=== PATIENT | female | born 1970 | race African-American/Black ===

== ENCOUNTER 2022-07-04 11:38 | Emergency (ER) | payer MEDICARE, MEDICAID, SELFPAY ==
[2022-07-04 11:39] VITALS: BP 145/75; PULSE 63; RESP 18; TEMP 36.4; O2SAT 97; BMI 58.6
--- NOTE | 2022-07-04 11:49 | EX.ED.DYSGE1 ---
HPI History of Present Illness Chief Complaint: General Illness Detail of Chief Complaint: Anxiety, upper respiratory symptoms diarrhea Informant: patient and family (Brother is present. He contributed to history.) Onset/Context/Timing Onset: - (Unknown. Brother was out of town for 10 days. He saw her last evening.) Context: - (Unknown) Timing: - (Unknown) Quality: HPI narrative Location: Respiratory, GI and possible psychological Current Severity: Per patient little . Maximum Severity: Uncertain Worsened by: Apparently nothing Relieved by: Nothing Associated Symptoms Associated Symptoms: What is documented in the HPI narrative Narrative Narrative: Patient is a 51-year-old woman present on no medications with history of anxiety disorder and cognitive impairment who arrived for evaluation due to mild rhinorrhea, cough, shortness of breath and reported numbness in her right upper extremity and pain in her right lower extremity. Brother states he was out of town for 10 days. Saw her for the first time last evening. He informed me that she normally goes to [facility] for her care. She did require antianxiolytic last visit. She is presently on no medication. Patient endorses little diarrhea . She denies nausea or vomiting. She states her headache is resolved. She denies change in vision, double vision or blurred vision. She denies ringing or ears decreased hearing. She has little rhinorrhea . She denies sore throat. Scant sputum production with cough. Presently she denies shortness of breath. Presently she denies chest discomfort. Presently she denies numbness in her right upper extremity. She did complain of pain rising from the wheelchair to a standing position. Patient began to cry. When asked why she was crying her brother informed me that she has a history of anxiety and has required medicine for her anxiety. He confirmed that she is presently on no medication. Prior similar symptoms: Yes Recent Illness/Hospitalization: No [facility] Medical History (Updated 07/04/22 @ 13:[address] Harman Brewer MD) Brain tumor Home Medications cetirizine 10 mg capsule (Zyrtec) 10 mg PO DAILY 07/04/22 [History Last Taken Unknown] hydrocodone-acetaminophen 5-325mg 5mg-325mg 1 tab PO Q6H PRN Pain 07/04/22 [History Last Taken Unknown] Allergy/AdvReac Type Severity Reaction Status Date / Time Penicillins Allergy Rash Verified 07/04/22 11:50 Social History (Updated 07/04/22 @ 11:[address] Harman Brewer MD) household members: none and other details: Apartment is in disarray. This apparently is not abnormal. Smoking Status: Never smoker alcohol intake: never substance use type: does not use ROS ROS ED Review of Systems ROS Unobtainable: due to mental status Constitutional Constitutional ED: Denies fever(s) Eyes Eyes: Denies blurry vision, change in vision or diplopia ENT ENT ED: Reports rhinorrhea Cardiovascular Cardiovascular: Denies chest pain, orthopnea, palpitations or paroxysmal nocturnal dyspnea Respiratory/Chest Respiratory/Chest: Reports cough, dyspnea and sputum; Denies dyspnea on exertion, orthopnea or paroxysmal nocturnal dyspnea Gastrointestinal Gastrointestinal: Reports diarrhea; Denies abdominal pain or vomiting Genitourinary Genitourinary ED: Denies dysuria, hematuria or urinary frequency Musculoskeletal Musculoskeletal: Denies arthralgias, back pain or myalgias Neurologic Neurologic: Reports headache(s) and weakness; Denies paresthesias Psychiatric Psychiatric: Reports anxiety Endocrine Endocrinology: Denies cold intolerance or heat intolerance EXAM Physical Exam Const Vital Signs: 07/04/22 11:39 07/04/22 11:53 Temperature 97.5 F L Temperature Source Temporal Pulse Rate 63 Respiratory Rate 18 Respiratory Effort Normal Non-Labored Respiratory Pattern Normal Blood Pressure 145/75 H Blood Pressure Mean 98 Pulse Ox 97 Oxygen Delivery Method Room Air Positive well nourished, well developed and obese; Negative for cachectic, contractures or unkempt Constitutional Narrative: Patient is tearful. She cannot explain why she is crying. General Appearance ED: well developed; Negative for unkempt, cachectic, contractures, cyanotic, diaphoretic or pallor Nutritional Appearance: obese; Negative for cachectic HEENT Reports moist mucous membranes HEENT Narrative: Ears normal. TMs normal. Nares patent. Uvula midline. No erythema or exudate. Eyes PERRL and EOMs intact bilaterally General Eye ED: Negative for pale conjunctiva or scleral icterus Neck no lymphadenopathy, supple and no JVD Chest Wall inspection of chest normal and palpation of chest normal Resp normal respiratory effort and clear to auscultation bilaterally Cardio regular rate, regular rhythm, S1 normal heart sound, S2 normal heart sound and no murmurs GI normal to inspection, nondistended, normoactive bowel sounds, non-tender, non-distended and no masses; Negative for hepatosplenomegaly Back/Spine no CVA tenderness Thoracic Spine / Upper Back: Negative for thoracic spinal tenderness Lumbar Spine / Lower Back: Negative for lumbar spinal tenderness Extremity normal to inspection General Extremety ED: Negative for edema or tenderness General Extremity: Negative for edema Neuro oriented x3, CN's II-XII intact bilaterally and no sensory deficits noted Neuro Narrative: There is no clonus. There is no Babinski sign. Sensorium / Orientation: alert Motor Exam: strength 5/5 throughout Psych Appearance: Negative for unkempt Mood & Affect: anxious and tearful Skin no rashes or lesions noted, no wounds and skin turgor normal General Skin Exam: Negative for jaundice or pallor MDM MDM MDM Narrative Medical decision making narrative: Call patient to assess due to cognitive impairment and anxiety. Since she does report respiratory symptoms we will obtain chest x-ray. Since she reports diarrhea and uncertain when her symptoms started will obtain basic metabolic panel to assess renal function, CO2 and rule out hypokalemia. Because patient has evidence of exophthalmos this will obtain TSH to evaluate for hypothyroidism. Patient was reassessed at 1314. Patient was informed her lab results and x-ray was unremarkable. She smiled. She asked if I knew the cause of her right lower extremity pain. I informed her I do not. I suspect that she has osteoarthritis. The tingling in her arm is unknown. She presently has no tingling or any other symptoms. Lab Data Attestation: I reviewed the patient's lab results. Lab results narrative: Patient has neutropenia. There are no old labs for comparison. Patient also has microcytic anemia. TSH was normal. Electrolyte panel is unremarkable. Labs: Laboratory Results - last 24 hr 07/04/22 07/04/22 12:10 12:10 WBC 3.5 L RBC 4.26 Hgb 8.5 L Hct 30.5 L MCV 71.6 L MCH 20.0 L MCHC 27.9 L RDW Std Deviation 58.9 H RDW Coeff of Priyanka 23.1 H Plt Count 343 MPV 10.0 Immature Gran % (Auto) 0.300 Neut % (Auto) 37.9 L Lymph % (Auto) 36.6 Pershing % (Auto) 24.0 H Eos % (Auto) 0.6 Baso % (Auto) 0.6 Absolute Neuts (auto) 1.3 L Absolute Lymphs (auto) 1.28 Nucleated RBC % 0 Anisocytosis 1+ Sodium 137 Potassium 4.2 Chloride 105 Carbon Dioxide 28.0 Anion Gap 4 L BUN 7 Creatinine 0.87 Estim Creat Clear Calc 53.72 Est GFR (MDRD) Af Amer 88 Est GFR (MDRD) Non-Af 73 BUN/Creatinine Ratio 8.1 L Glucose 94 Calcium 9.4 TSH 1.16 Radiography Chest X-Ray - ED: 2 View and Read by ED Physician (2 view chest x-ray reveals borderline cardiomegaly. Silhouette is unremarkable. Perihilar regions unremarkable. Lung parenchyma is normal. There is no effusion noted. Osseous structures are unremarkable. This was dependently reviewed and interpreted by me at 1258) Diagnostic Testing: Clinical Impression(s) from Imaging Studies Chest X-Ray 07/04/22 12:51 IMPRESSION: Cardiomegaly. Electronically Signed: Bry Velarde MD at 13:08 EDT , Discharge Plan Triage Chief Complaint: General Illness ED Provider: Harman Brewer Dx/Rx/DC Orders Clinical Impression: Anxiety reaction, Paresthesia of right upper limb, Acute pain of right lower extremity, Upper respiratory infection with cough and congestion, Cognitive impairment Instructions: ED Anxiety Reaction, ED Osteoarthritis, ED URI, Viral, No Abx (Adult), ED Paraesthesias Prescriptions: No Action hydrocodone-acetaminophen [[place]] 5-325 mg Tablet 1 tab PO Q6H PRN (Reason: Pain) Zyrtec 10 mg Capsule 10 mg PO DAILY Primary Care Provider: Kitty Edwards NP Referrals: Kitty Edwards RIDES SUPERVISOR, RIDES SUPERVISOR-C [Primary Care Provider] - 3-5 Days if not improving Disposition Disposition: Home, Self Care
[2022-07-04 12:21] LABS: Absolute Lymphocyte Count 1.28 X10^3/uL (0.83-4.51); Absolute Neutrophil Count 1.3 X10^3/uL (2.0-7.7); Basophil# 0.02 X10^3/uL; Basophil% 0.6 % (0-1); Eosinophil# 0.02 X10^3/uL; Eosinophils% 0.6 % (0-5); Hematocrit 30.5 % (37-47); Hemoglobin 8.5 g/dL (12.0-15.0); Lymphocyte # 1.28 X10^3/ul (0.83-4.51); Lymphocyte % 36.6 % (19-41); Mean Corp Hgb Conc 27.9 g/dL (32-36); Mean Corpuscular Volume 71.6 fL (81-99); Monocyte# 0.84 X10^3/uL; NRBC Flagged by Analyzer 0 % (0-5); Neutrophil # 1.33 X10^3/uL (2.7-7.7); Neutrophil % 37.9 % (47-70); POSITIVE MORPHOLOGY YES; Platelet Count 343 K/mm3 (150-450); RBC Distribution Width CV 23.1 % (11.6-14.6); RBC Distribution Width SD 58.9 fl (35.1-43.9); Red Blood Count 4.26 M/mm3 (4.2-5.4); White Blood Count 3.5 K/mm3 (4.4-11.0)
[2022-07-04 12:22] LABS: Differential Indicated SCAN CRITERIA MET
[2022-07-04 12:47] LABS: Anisocytosis 1+
--- NOTE | 2022-07-04 12:51 | RAD_ITS ---
STUDY: X-RAY CHEST REASON FOR EXAM: Female, 51 years old. Cough TECHNIQUE: AP and lateral views of the chest. COMPARISON: None. FINDINGS: EKG electrodes are seen. The lungs are clear and expanded. There is no demonstrated pleural abnormality. There is moderate cardiac enlargement. Normal mediastinum and fiona. Normal visualized pulmonary arteries. Normal visualized aortic arch and descending thoracic aorta. There are degenerative changes of the visualized thoracic spine. Normal visualized ribs, clavicles, and shoulders. There is no demonstrated abnormality of the visualized soft tissue structures of the upper abdomen. RAD/Chest PA and Lateral IMPRESSION: Cardiomegaly. Electronically Signed: Bry Velarde MD at 13:08 EDT ,
[2022-07-04 12:53] LABS: Anion Gap 4 (5-15); BUN 7 mg/dL (7-18); BUN/Creat Ratio 8.1 RATIO (10-20); Calcium,Total 9.4 mg/dL (8.5-10.1); Chloride 105 mmol/L (98-107); Creatinine, Serum 0.87 mg/dL (0.55-1.02); EST Glomerular Filtration Rate 73 mL/min (>60); Est Glom Filt Rate - Afr Amer 88 mL/min (>60); Estimated Creatinine Clearance 53.72 ml/min; Glucose 94 mg/dL (74-106); Potassium 4.2 mmol/L (3.5-5.1); Sodium Level 137 mmol/L (136-145); Thyroid Stim Hormone (TSH) 1.16 uIU/mL (0.358-3.74)
[2022-07-04 13:49] VITALS: BP 148/74; PULSE 63; RESP 20; O2SAT 98
== END 2022-07-04 13:50 | disposition home or self-care (01) ==
PROVIDERS: Emergency Provider Emergency Medicine; PCP Nurse Practitioner Family; Visit Provider Emergency Medicine
DX: F41.1 Generalized anxiety disorder (principal); R20.2 Paresthesia of skin; M79.604 Pain in right leg; J06.9 Acute upper respiratory infection, unspecified; R41.89 Other symptoms and signs involving cognitive functions and awareness; E66.9 Obesity, unspecified
CPT/HCPCS: 71046; 80048; 84443; 85025; 99285; A4216

== ENCOUNTER 2023-04-01 11:30 | Observation (INO) | payer MEDICARE, MEDICAID, SELFPAY ==
[2023-04-01] VITALS (13 sets, daily range): BP systolic 124–156; BP diastolic 42–67; PULSE 63–75; RESP 14–18; TEMP 36.1–37.1; O2SAT 98–100; BMI 60.8; BMI 59.4
--- NOTE | 2023-04-01 12:41 | US_ITS ---
STUDY: ULTRASOUND OF THE FEMALE PELVIS - COMPLETE REASON FOR EXAM: Female, 52 years old. heave vaginal bleeding LMP: February 23, 2023. TECHNIQUE: Transvaginal. TECHNICAL QUALITY: Limited. Examination limited due to obesity. COMPARISON: None. FINDINGS: The uterus is anteverted and is in a midline position. The uterus is enlarged and measures 11.6 cm x 7.1 cm x 6.9 cm. There is a Nabothian cyst of the cervix. The endometrium is thickened and measures 31.1 mm in thickness, and is heterogeneous (striated). There is no demonstrated endometrial mass. There is no demonstrated myometrial mass. I.U.D. - The patient does not have an I.U.D. The right ovary is non-visualized. The left ovary is non-visualized. There is no fluid in the cul-de-sac. US/Transvaginal Non- IMPRESSION: Marked degree of thickening of the endometrium with an heterogeneous pattern. Clinical correlation is recommended. Electronically Signed: Bry Velarde MD at 14:38 EDT ,
--- NOTE | 2023-04-01 12:43 | EDS_ITS ---
HPI History of Present Illness Chief Complaint: Vag Bleeding Detail of Chief Complaint: Heavy vaginal bleeding for a month. Informant: patient and family Onset/Context/Timing Onset: Weeks Timing: Intermittent Current Severity: Moderate Maximum Severity: Moderate Narrative Narrative: 52-year-old female history of anemia hemoglobin last June was 8.5. Prior brain surgery as a child. States that she has had heavy vaginal bleeding with clots for about 5 weeks. Denies being . Is never been . G0, P 0. No prior abdominal or HR BUSINESS PARTNER CONSULTANT surgery. Is on no blood thinners. Denies significant pelvic or abdominal pain. Prior similar symptoms: Yes Recent Illness/Hospitalization: No PFSH PFSH Medical History Brain tumor Home Medications cyanocobalamin (vitamin B-12) 1,000 mcg tablet 1,000 mcg PO DAILY 04/01/23 [History Last Taken Unknown] ferrous sulfate 220 mg (44 mg iron)/5 mL oral elixir 220 mg PO QODAY 04/01/23 [History Last Taken Unknown] Allergy/AdvReac Type Severity Reaction Status Date / Time Penicillins Allergy Rash Verified 04/01/23 11:46 Social History household members: none and other details: Apartment is in disarray. This apparently is not abnormal. Smoking Status: Never smoker alcohol intake: never substance use type: does not use ROS ROS ED ROS Narrative Denies recent illness. Heavy vaginal bleeding with clots. Review of Systems ROS Unobtainable: Denies due to encephalopathy Constitutional Constitutional ED: Denies chills or fever(s) Eyes Eyes: Denies blurry vision ENT ENT ED: Denies ear pain Cardiovascular Cardiovascular: Denies chest pain or palpitations Respiratory/Chest Respiratory/Chest: Denies cough or dyspnea Gastrointestinal Gastrointestinal: Denies abdominal pain, constipation, diarrhea, nausea or vomiting Genitourinary Genitourinary ED: Denies dysuria or hematuria Musculoskeletal Musculoskeletal: Denies arthralgias Integumentary Denies abscess Neurologic Neurologic: Denies headache(s) Psychiatric Psychiatric: Denies anxiety Endocrine Endocrinology: Denies cold intolerance Hematologic/Lymphatic Hematologic/Lymphatic: Reports none Allergic/Immunologic Allergic/Immunologic ED: Denies mouth swelling or tongue swelling EXAM Physical Exam Narrative Exam Narrative: 49-year-old female vital signs stable afebrile does not look septic or toxic. No distress. Brother at bedside. H EENT exam unremarkable. Neck nontender no JVD. Lungs clear to auscultation bilaterally. Heart regular rhythm rate about 65 no murmur. Chest wall nontender. Abdomen soft nontender. Moving all 4 extremities. Nontender no edema. Neurologically she is awake and alert with no focal motor deficits. Const Vital Signs: 04/01/23 11:37 Temperature 98.7 F Temperature Source Temporal Pulse Rate 63 Respiratory Rate 14 Blood Pressure 130/64 H Blood Pressure Mean 86 Pulse Ox 100 Oxygen Delivery Method Room Air Positive well nourished, well developed and obese; Negative for cachectic, contractures or unkempt General Appearance ED: well developed and NAD; Negative for unkempt, cachectic, contractures, cyanotic, diaphoretic or pallor Nutritional Appearance: obese; Negative for cachectic HEENT Reports moist mucous membranes; Denies dry mucous membranes Negative for trauma or tenderness Mouth ED: No dry mucous membranes Mouth: No dry mucous membranes Eyes PERRL and EOMs intact bilaterally General Eye ED: Negative for pale conjunctiva, scleral icterus or other Neck no lymphadenopathy, supple and no JVD General: Negative for tenderness Lymph Lymphatic: Negative for other Chest Wall inspection of chest normal and palpation of chest normal Chest: Negative for other Resp normal respiratory effort and clear to auscultation bilaterally Effort and Inspection: Negative for retractions Auscultation: Negative for rales, rhonchi, wheezes or diminished lung sounds Cardio regular rate, regular rhythm, S1 normal heart sound, S2 normal heart sound and no murmurs Palpation: Negative for palpable S3 or palpable S4 Rate: Negative for bradycardia Rhythm: Negative for abnormal rhythm GI normal to inspection, nondistended, normoactive bowel sounds, non-tender, non- distended and no masses Inspection: Negative for abdominal distention Auscultation: normoactive bowel sounds Palpation: soft; Negative for tender, guarding, splenomegaly, mass or rebound tenderness present Bladder / Kidney Exam: No other Back/Spine no CVA tenderness General Back: Negative for CVA tenderness Cervical Spine: Negative for cervical spine tenderness Thoracic Spine / Upper Back: Negative for thoracic spinal tenderness Lumbar Spine / Lower Back: Negative for lumbar spinal tenderness Extremity normal to inspection General Extremety ED: Negative for edema or tenderness General Extremity: Negative for edema Neuro oriented x3, CN's II-XII intact bilaterally and no sensory deficits noted Sensorium / Orientation: alert; Negative for orientation impaired, lethargic or stuporous Sensory Exam: No sensory level loss detected Motor Exam: strength 5/5 throughout Psych mental status grossly normal Appearance: Negative for unkempt Attitude: No agitated Mood & Affect: Negative for depressed, anxious or tearful Skin no rashes or lesions noted, no wounds and skin turgor normal General Skin Exam: elasticity normal; Negative for jaundice or pallor Lesions: No lesion noted Rashes: No rashes noted Trauma: Negative for abrasion Wounds: Negative for wounds noted MDM MDM MDM Narrative Medical decision making narrative: For [id number] female with vaginal bleeding with a history of anemia. Exam benign. Screening labs will be obtained. She will be typed and screened. A pelvic transvaginal ultrasound be obtained to help determine potential cause of the bleeding. Patient has acute on chronic anemia from vaginal bleeding. Awaiting the ultrasound results. She will need to be admitted for transfusion and evaluation. I have the patient typed and crossed for 4 units of blood. I am ordering 2 units to be transfused. She will probably need additional blood I will leave that up to the admitting physician on how much transfusions they want to give her. I have the HR BUSINESS PARTNER CONSULTANT on-call, Dr. Tiana Jennings, on page for admission. Patient only transfused. OB can decide if they want to do anything procedure valencia such as a hysterectomy etc. She will obviously need blood transfusions prior to any procedure. We discussed her care. Patient also be given p.o. medroxyprogesterone 20 mg. History & Record Review Discussion w/independent historian: Patient and Family Lab Data Attestation: I reviewed the patient's lab results. Lab results narrative: CBC shows a white count 6.8 however she is very anemic her hemoglobin is 4.2 hematocrit is 15. Platelets are normal at 291. PT, INR and PTT are unremarkable at 14, 1 and 39. Electrolytes are unremarkable gap is 7. BUN of 4 creatinine 0.7. Glucose 99. Serum test negative. Labs: Laboratory Results - last 24 hr 04/01/23 04/01/23 04/01/23 13:15 13:15 13:15 WBC 6.8 RBC 2.30 L Hgb 4.2 L* Hct 15.7 L MCV 68.3 L MCH 18.3 L MCHC 26.8 L RDW Std Deviation 47.3 H RDW Coeff of Priyanka 22.7 H Plt Count 291 MPV 10.6 Immature Gran % (Auto) 0.900 Neut % (Auto) 57.9 Lymph % (Auto) 30.8 Vernon % (Auto) 6.7 Eos % (Auto) 3.4 Baso % (Auto) 0.3 Absolute Neuts (auto) 3.9 Absolute Lymphs (auto) 2.08 Nucleated RBC % 0.3 Differential Comment SCANNED Diff Path Review May foll Hypochromasia 2+ Anisocytosis 3+ Microcytosis 3+ PT 14.4 INR 1.1 APTT 39.6 H Sodium 142 Potassium 4.1 Chloride 109 H Carbon Dioxide 26.0 Anion Gap 7 BUN 4 L Creatinine 0.71 Estim Creat Clear Calc 65.06 Est GFR (MDRD) Af Amer 110 Est GFR (MDRD) Non-Af 91 BUN/Creatinine Ratio 5.6 L Glucose 99 Calcium 9.6 Serum , Qual Blood Type Antibody Screen Crossmatch 04/01/23 04/01/23 04/01/23 13:15 13:15 13:15 WBC RBC Hgb Hct MCV MCH MCHC RDW Std Deviation RDW Coeff of Priyanka Plt Count MPV Immature Gran % (Auto) Neut % (Auto) Lymph % (Auto) Vernon % (Auto) Eos % (Auto) Baso % (Auto) Absolute Neuts (auto) Absolute Lymphs (auto) Nucleated RBC % Differential Comment Diff Path Review Hypochromasia Anisocytosis Microcytosis PT INR APTT Sodium Potassium Chloride Carbon Dioxide Anion Gap BUN Creatinine Estim Creat Clear Calc Est GFR (MDRD) Af Amer Est GFR (MDRD) Non-Af BUN/Creatinine Ratio Glucose Calcium Serum , Qual NEGATIVE Blood Type O POSITIVE Antibody Screen NEGATIVE Crossmatch See Detail Radiography Diagnostic Testing: Clinical Impression(s) from Imaging Studies Transvaginal US 04/01/23 12:41 IMPRESSION: Marked degree of thickening of the endometrium with an heterogeneous pattern. Clinical correlation is recommended. Electronically Signed: Bry Velarde MD at 14:38 EDT , Discharge Plan Dx/Rx/DC Orders Clinical Impression: Abnormal vaginal bleeding, Anemia, Dysfunctional uterine bleeding Disposition Disposition: Acute Care Hospital [facility]
[2023-04-01 13:27] LABS: Absolute Lymphocyte Count 2.08 X10^3/uL (0.83-4.51); Absolute Neutrophil Count 3.9 X10^3/uL (2.0-7.7); Basophil# 0.02 X10^3/uL; Basophil% 0.3 % (0-1); Eosinophil# 0.23 X10^3/uL; Eosinophils% 3.4 % (0-5); Hematocrit 15.7 % (37-47); Lymphocyte # 2.08 X10^3/ul (0.83-4.51); Lymphocyte % 30.8 % (19-41); Mean Corp Hgb Conc 26.8 g/dL (32-36); Mean Corpuscular Hgb 18.3 pg (27.0-32.0); Mean Corpuscular Volume 68.3 fL (81-99); Mean Platelet Vol. 10.6 fl (6.2-12.0); Monocyte# 0.45 X10^3/uL; Monocyte% 6.7 % (0-10); NRBC Flagged by Analyzer 0.3 % (0-5); Neutrophil # 3.92 X10^3/uL (2.7-7.7); Neutrophil % 57.9 % (47-70); POSITIVE COUNT YES; POSITIVE MORPHOLOGY YES; Platelet Count 291 K/mm3 (150-450); RBC Distribution Width CV 22.7 % (11.6-14.6); RBC Distribution Width SD 47.3 fl (35.1-43.9); White Blood Count 6.8 K/mm3 (4.4-11.0)
[2023-04-01 13:35] LABS: International Normalized Ratio 1.1; Prothrombin Time (Protime)PT. 14.4 SECONDS (11.7-14.9)
[2023-04-01 13:36] LABS: Partial Thromboplast Time 39.6 Seconds (24.1-36.2)
[2023-04-01 13:38] LABS: Internal QC Validated? YES +Cl - CLEAR BKGD; Pregnancy, Serum, hCG Quali. NEGATIVE Negative
[2023-04-01 13:40] LABS: Anion Gap 7 (5-15); BUN 4 mg/dL (7-18); BUN/Creat Ratio 5.6 RATIO (10-20); Calcium,Total 9.6 mg/dL (8.5-10.1); Chloride 109 mmol/L (98-107); Creatinine, Serum 0.71 mg/dL (0.55-1.02); EST Glomerular Filtration Rate 91 mL/min (>60); Est Glom Filt Rate - Afr Amer 110 mL/min (>60); Estimated Creatinine Clearance 65.06 ml/min; Glucose 99 mg/dL (74-106); Potassium 4.1 mmol/L (3.5-5.1); Sodium Level 142 mmol/L (136-145)
[2023-04-01 13:44] LABS: Differential Indicated SCAN CRITERIA MET; Hemoglobin 4.2 g/dL (12.0-15.0)
[2023-04-01 14:00] LABS: Differential Comment SCANNED
[2023-04-01 14:01] LABS: Anisocytosis 3+; Hypochromasia 2+; Microcytosis 3+
--- NOTE | 2023-04-01 15:01 | ED.VIS.FEGU ---
HPI HPI - Female History of Present Illness Chief Complaint: Vag Bleeding PFSH PFS Medical History Brain tumor Home Medications cyanocobalamin (vitamin B-12) 1,000 mcg tablet 1,000 mcg PO DAILY 04/01/23 [History Last Taken Unknown] ferrous sulfate 220 mg (44 mg iron)/5 mL oral elixir 220 mg PO QODAY 04/01/23 [History Last Taken Unknown] Allergy/AdvReac Type Severity Reaction Status Date / Time Penicillins Allergy Rash Verified 04/01/23 11:46 Social History household members: none and other details: Apartment is in disarray. This apparently is not abnormal. Smoking Status: Never smoker alcohol intake: never substance use type: does not use EXAM Physical Exam Const Vital Signs: 04/01/23 11:37 Temperature 98.7 F Temperature Source Temporal Pulse Rate 63 Respiratory Rate 14 Blood Pressure 130/64 H Blood Pressure Mean 86 Pulse Ox 100 Oxygen Delivery Method Room Air MDM MDM MDM Narrative Medical decision making narrative: 52-year-old vaginal bleeding. Has a history of chronic anemia. Labs to be obtained ultrasound. Labs are consistent with acute on chronic anemia with a hemoglobin of 4.2. She has been typed and crossed for 4 units she will be transfused 4 units over hours. I spoke to SENIOR BUSINESS INTELLIGENCE ANALYST on-call, Dr. Tiana Jennings, she will admit the patient. We also discussed and the patient will be given medroxyprogesterone p.o. for the vaginal bleeding. Currently patient stable. I discussed her test results with her and her brother just returned I spoke with him in the room also at 3:00. Both are comfortable with the plan. Her vital signs remained stable. Patient has issues with anxiety will be given a milligram p.o. of Ativan also. Lab Data Attestation: I reviewed the patient's lab results. Lab results narrative: CBC shows white count 6.8. H&H 4.2 and 15.7. Her most recent hemoglobin was 8.5. Platelets are normal at 291. PT/INR PTT are 14, 1 and 39. Electrolytes are unremarkable. Gap of 7. Normal BUN and creatinine. Glucose 99. Serum test negative. Transvaginal, pelvic ultrasound showed thickened endometrium 3 cm. Labs: Laboratory Results - last 24 hr 04/01/23 04/01/23 04/01/23 13:15 13:15 13:15 WBC 6.8 RBC 2.30 L Hgb 4.2 L* Hct 15.7 L MCV 68.3 L MCH 18.3 L MCHC 26.8 L RDW Std Deviation 47.3 H RDW Coeff of Priyanka 22.7 H Plt Count 291 MPV 10.6 Immature Gran % (Auto) 0.900 Neut % (Auto) 57.9 Lymph % (Auto) 30.8 Ponce % (Auto) 6.7 Eos % (Auto) 3.4 Baso % (Auto) 0.3 Absolute Neuts (auto) 3.9 Absolute Lymphs (auto) 2.08 Nucleated RBC % 0.3 Differential Comment SCANNED Diff Path Review May foll Hypochromasia 2+ Anisocytosis 3+ Microcytosis 3+ PT 14.4 INR 1.1 APTT 39.6 H Sodium 142 Potassium 4.1 Chloride 109 H Carbon Dioxide 26.0 Anion Gap 7 BUN 4 L Creatinine 0.71 Estim Creat Clear Calc 65.06 Est GFR (MDRD) Af Amer 110 Est GFR (MDRD) Non-Af 91 BUN/Creatinine Ratio 5.6 L Glucose 99 Calcium 9.6 Serum , Qual Blood Type Antibody Screen Crossmatch 04/01/23 04/01/23 04/01/23 13:15 13:15 13:15 WBC RBC Hgb Hct MCV MCH MCHC RDW Std Deviation RDW Coeff of Priyanka Plt Count MPV Immature Gran % (Auto) Neut % (Auto) Lymph % (Auto) Ponce % (Auto) Eos % (Auto) Baso % (Auto) Absolute Neuts (auto) Absolute Lymphs (auto) Nucleated RBC % Differential Comment Diff Path Review Hypochromasia Anisocytosis Microcytosis PT INR APTT Sodium Potassium Chloride Carbon Dioxide Anion Gap BUN Creatinine Estim Creat Clear Calc Est GFR (MDRD) Af Amer Est GFR (MDRD) Non-Af BUN/Creatinine Ratio Glucose Calcium Serum , Qual NEGATIVE Blood Type O POSITIVE Antibody Screen NEGATIVE Crossmatch See Detail Radiography Diagnostic Testing: Clinical Impression(s) from Imaging Studies Transvaginal US 04/01/23 12:41 IMPRESSION: Marked degree of thickening of the endometrium with an heterogeneous pattern. Clinical correlation is recommended. Electronically Signed: Bry Velarde MD at 14:38 EDT , Discharge Plan Dx/Rx/DC Orders Clinical Impression: Abnormal vaginal bleeding, Anemia, Dysfunctional uterine bleeding Disposition Disposition: Acute Care Hospital [facility]
[2023-04-01] MEDS: MEDROXYPROGESTERONE ACETATE 10 MG TABLET 20 MG PO ×2 (15:09→20:31)
[2023-04-01] MEDS: LORazepam 1 MG Tablet PO (15:13)
--- NOTE | 2023-04-01 17:45 | HP.PCM_ITS ---
HPI - General General Date of Admission: 04/01/23 Chief Complaint: Feeling weak HPI Narrative MADALYN CONTEH, is a 52 F who presented to ED via squad. Patient called pcp office with heavy vaginal bleeding and a headache. Patient reports heavy bleeding with blood clots for the past 2 months. She has long history of heavy and irregular menses. She denies being in menopause ever. Her last renewals specialist visit was in 2014. She also denies previous gynecologic problems. [facility] Medical History Anxiety Brain tumor Chest pain Depression Irregular heart beat Home Medications cyanocobalamin (vitamin B-12) 1,000 mcg tablet 1,000 mcg PO DAILY 04/01/23 [History Last Taken Unknown] ferrous sulfate 220 mg (44 mg iron)/5 mL oral elixir 220 mg PO QODAY 04/01/23 [History Last Taken Unknown] Allergy/AdvReac Type Severity Reaction Status Date / Time Penicillins Allergy Rash Verified 04/01/23 11:46 Social History household members: none and other details: Apartment is in disarray. This apparently is not abnormal. Smoking Status: Never smoker alcohol intake: never substance use type: does not use ROS Cardiovascular Cardiovascular: Reports palpitations Psychiatric Psychiatric: Reports anxiety Hematologic/Lymphatic Hematologic/Lymphatic: Reports anemia Vital Signs Vital Signs Vital Signs: 04/01/23 11:37 04/01/23 15:45 04/01/23 16:00 Temperature 98.7 F 98.7 F 98.3 F Temperature Source Temporal Temporal Temporal Pulse Rate 63 67 72 Respiratory Rate 14 14 18 Blood Pressure 130/64 H 127/52 H 139/54 H Blood Pressure Mean 86 77 82 Blood Pressure Source Monitor Monitor Blood Pressure Position Semi-Fowlers Semi-Fowlers Blood Pressure Location Right Forearm Right Forearm Pulse Ox 100 100 98 Oxygen Delivery Method Room Air Room Air Room Air 04/01/23 16:00 04/01/23 15:00 04/01/23 17:00 Temperature 98.3 F 97.4 F L Temperature Source Temporal Oral Pulse Rate 70 75 71 Respiratory Rate 18 17 16 Blood Pressure 139/54 H 140/58 H 124/42 H Blood Pressure Mean 82 85 69 Blood Pressure Source Monitor Blood Pressure Position Semi-Fowlers Blood Pressure Location Right Forearm Pulse Ox 98 98 99 Oxygen Delivery Method Room Air Room Air Room Air Weight Weight: 304 lb 3.806 oz Body Mass Index (BMI) 59.4 Physical Exam Const alert, oriented x3 and no apparent distress Resp normal respiratory effort GI soft to palpation, non-tender and non-distended GI Narrative: obese Neuro CN's II-XII intact bilaterally Results Lab / Micro Data Result Diagrams: 04/01/23 13:15 04/01/23 13:15 Labs: Laboratory Results - last 24 hr 04/01/23 13:15: WBC 6.8, RBC 2.30 L, Hgb 4.2 L*, Hct 15.7 L, MCV 68.3 L, MCH 18.3 L, MCHC 26.8 L, RDW Std Deviation 47.3 H, RDW Coeff of Priyanka 22.7 H, Plt Count 291, MPV 10.6, Immature Gran % (Auto) 0.900, Neut % (Auto) 57.9, Lymph % (Auto) 30.8, [place] % (Auto) 6.7, Eos % (Auto) 3.4, Baso % (Auto) 0.3, Absolute Neuts (auto) 3.9, Absolute Lymphs (auto) 2.08, Nucleated RBC % 0.3, Differential Comment SCANNED, Diff Path Review May foll, Hypochromasia 2+, Anisocytosis 3+, Microcytosis 3+ 04/01/23 13:15: PT 14.4, INR 1.1, APTT 39.6 H 04/01/23 13:15: Sodium 142, Potassium 4.1, Chloride 109 H, Carbon Dioxide 26.0, Anion Gap 7, BUN 4 L, Creatinine 0.71, Estim Creat Clear Calc 65.06, Est GFR (MDRD) Af Amer 110, Est GFR (MDRD) Non-Af 91, BUN/Creatinine Ratio 5.6 L, Glucose 99, Calcium 9.6 04/01/23 13:15: Serum , Qual NEGATIVE 04/01/23 13:15: Blood Type O POSITIVE, Antibody Screen NEGATIVE 04/01/23 13:15: Crossmatch See Detail Radiology Impression Transvaginal US 04/01/23 12:41 IMPRESSION: Marked degree of thickening of the endometrium with an heterogeneous pattern. Clinical correlation is recommended. Electronically Signed: Bry Velarde MD at 14:38 EDT , Assessment & Plan Assessment/Plan (1) Abnormal vaginal bleeding: PLAN: HD#1 (2) Anemia: PLAN: Plan Admit to PCU Plan for transfusion 4 units PRBCs Repeat labs in AM Provera 20mg tid Ativan for anxiety Plan for endometrial sampling & possible Mirena IUD at some point as TVUS shows thickened endometrial lining Plan of care discussed with patient & her brother
[2023-04-01] MEDS: 0.9% Saline Lock 10 ML Syringe IV (21:59)
[2023-04-01] MEDS: Furosemide 20 MG/2 ML VIAL IV (21:59)
[2023-04-01] MEDS: LORazepam 0.5 MG Tablet PO (23:02)
[2023-04-01] MEDS: Acetaminophen 325 MG Tablet 650 MG PO (23:03)
[2023-04-02] VITALS (9 sets, daily range): BP systolic 110–143; BP diastolic 53–87; PULSE 64–77; RESP 16–18; TEMP 36.1–36.8; O2SAT 97–100
[2023-04-02] MEDS: MEDROXYPROGESTERONE ACETATE 10 MG TABLET 20 MG PO ×2 (05:37→14:31)
[2023-04-02 07:07] LABS: Absolute Lymphocyte Count 1.81 X10^3/uL (0.83-4.51); Basophil# 0.05 X10^3/uL; Basophil% 0.5 % (0-1); Eosinophil# 0.19 X10^3/uL; Eosinophils% 1.9 % (0-5); Hemoglobin 8.1 g/dL (12.0-15.0); Lymphocyte # 1.81 X10^3/ul (0.83-4.51); Lymphocyte % 18.1 % (19-41); Mean Corp Hgb Conc 28.9 g/dL (32-36); Mean Corpuscular Hgb 22.1 pg (27.0-32.0); Mean Corpuscular Volume 76.5 fL (81-99); Mean Platelet Vol. 10.7 fl (6.2-12.0); NRBC Flagged by Analyzer 0.5 % (0-5); Neutrophil # 6.97 X10^3/uL (2.7-7.7); Neutrophil % 69.8 % (47-70); POSITIVE MORPHOLOGY YES; Platelet Count 262 K/mm3 (150-450); RBC Distribution Width CV 24.5 % (11.6-14.6); RBC Distribution Width SD 63.7 fl (35.1-43.9); Red Blood Count 3.66 M/mm3 (4.2-5.4)
[2023-04-02 07:09] LABS: Differential Indicated SCAN CRITERIA MET
[2023-04-02 07:24] LABS: ALB/GLOB Ratio 0.7 RATIO (0.9-2.4); AST(SGOT) 18 U/L (15-37); Alanine Aminotransfer ALT/SGPT 13 U/L (13-56); Alkaline Phosphatase 84 U/L (45-117); Anion Gap 6 (5-15); BUN 7 mg/dL (7-18); BUN/Creat Ratio 10.9 RATIO (10-20); Calcium,Total 9.3 mg/dL (8.5-10.1); Chloride 111 mmol/L (98-107); Creatinine, Serum 0.64 mg/dL (0.55-1.02); EST Glomerular Filtration Rate 102 mL/min (>60); Est Glom Filt Rate - Afr Amer 124 mL/min (>60); Estimated Creatinine Clearance 72.18 ml/min; Globulin 4.2 g/dL (2.2-4.2); Glucose 102 mg/dL (74-106); Potassium 3.5 mmol/L (3.5-5.1); Protein, Total 7.2 g/dL (6.4-8.2); Sodium Level 144 mmol/L (136-145)
[2023-04-02] MEDS: Ensure Plus High Protein 120 ML LIQUID PO (07:26)
[2023-04-02 07:53] LABS: Anisocytosis 1+
--- NOTE | 2023-04-02 09:48 | PCM.PROGNOTE ---
Subjective Subjective Patient seen at bedside, she was up to the toilet with nursing assistance. She felt lightheaded going from the bathroom to the bed. She is a poor historian but states that she had irregular bleeding prior to the 2 months of persistent bleeding. She states she was passing clots. She states prior to the EMS arriving at her door she had called her primary care doctor and was not feeling well. She states that she felt that her heart was pounding in her head. She states she has never gone 1 full year without a menses. Patient ideally would like to go home today she states she does live alone. She is unsure of what medical condition she has and what medications she takes other than a B complex and iron therapy every other day. Objective Data Objective Data Vital Signs: Vital Signs Temp Pulse Resp BP Pulse Ox O2 Del Method 97 F L 70 18 123/78 H 100 Room Air 04/02/23 05:05 04/02/23 05:05 04/02/23 05:05 04/02/23 05:05 04/02/23 05:05 04/02/23 07:27 Oxygen Delivery Method Room Air Weight: 138 kg Body Mass Index (BMI) 59.4 Intake & Output: Intake and Output for Last 24 Hours 03/31/23 04/01/23 04/02/23 23:59 23:59 23:59 Intake Total 1520 / 1520 800 / 800 Output Total 1999 / 1999 Balance 1520 / 520 -1200 / -1200 Lab / Micro Data Result Diagrams: 04/02/23 06:50 04/02/23 06:50 Labs: Laboratory Results - last 24 hr 04/01/23 13:15: WBC 6.8, RBC 2.30 L, Hgb 4.2 L*, Hct 15.7 L, MCV 68.3 L, MCH 18.3 L, MCHC 26.8 L, RDW Std Deviation 47.3 H, RDW Coeff of Priyanka 22.7 H, Plt Count 291, MPV 10.6, Immature Gran % (Auto) 0.900, Neut % (Auto) 57.9, Lymph % (Auto) 30.8, [place] % (Auto) 6.7, Eos % (Auto) 3.4, Baso % (Auto) 0.3, Absolute Neuts (auto) 3.9, Absolute Lymphs (auto) 2.08, Nucleated RBC % 0.3, Differential Comment SCANNED, Diff Path Review May foll, Hypochromasia 2+, Anisocytosis 3+, Microcytosis 3+ 04/01/23 13:15: PT 14.4, INR 1.1, APTT 39.6 H 04/01/23 13:15: Sodium 142, Potassium 4.1, Chloride 109 H, Carbon Dioxide 26.0, Anion Gap 7, BUN 4 L, Creatinine 0.71, Estim Creat Clear Calc 65.06, Est GFR (MDRD) Af Amer 110, Est GFR (MDRD) Non-Af 91, BUN/Creatinine Ratio 5.6 L, Glucose 99, Calcium 9.6 04/01/23 13:15: Serum , Qual NEGATIVE 04/01/23 13:15: Blood Type O POSITIVE, Antibody Screen NEGATIVE 04/01/23 13:15: Crossmatch See Detail 04/02/23 06:50: WBC 10.0, RBC 3.66 L, Hgb 8.1 L, Hct 28.0 L, MCV 76.5 L D, MCH 22.1 L, MCHC 28.9 L D, RDW Std Deviation 63.7 H, RDW Coeff of Priyanka 24.5 H, Plt Count 262, MPV 10.7, Immature Gran % (Auto) 3.700 H, Neut % (Auto) 69.8, Lymph % (Auto) 18.1 L, [place] % (Auto) 6.0, Eos % (Auto) 1.9, Baso % (Auto) 0.5, Absolute Neuts (auto) 7.0, Absolute Lymphs (auto) 1.81, Nucleated RBC % 0.5, Anisocytosis 1+ 04/02/23 06:50: Sodium 144, Potassium 3.5, Chloride 111 H, Carbon Dioxide 27.0, Anion Gap 6, BUN 7, Creatinine 0.64, Estim Creat Clear Calc 72.18, Est GFR (MDRD) Af Amer 124, Est GFR (MDRD) Non-Af 102, BUN/Creatinine Ratio 10.9, Glucose 102, Calcium 9.3, Total Bilirubin 1.60 H, AST 18, ALT 13, Alkaline Phosphatase 84, Total Protein 7.2, Albumin 3.0 L, Globulin 4.2, Albumin/Globulin Ratio 0.7 L Radiography Diagnostic Testing: Radiology Impression Transvaginal US 04/01/23 12:41 IMPRESSION: Marked degree of thickening of the endometrium with an heterogeneous pattern. Clinical correlation is recommended. Electronically Signed: Bry Velarde MD at 14:38 EDT , Physical Exam Const alert and oriented x3 General Appearance: cooperative and comfortable Assessment & Plan Assessment/Plan (1) Anxiety disorder: (2) Abnormal vaginal bleeding: (3) Anemia: (4) Dysfunctional uterine bleeding: (5) Endometrial thickening on ultrasound: (6) Enlarged uterus: PLAN: Plan HD#1- acute on chronic anemia - AUB 1) discussed with the patient that I would recommend a hysteroscopy, D&C with insertion of a Mirena/Liletta IUD. We discussed that this could be due to possible hyperplasia versus endometrial cancer. We discussed that hysteroscopy D&C can be therapeutic as well as diagnostic. Discussed the possible polyp versus fibroids. Images were reviewed enlarged uterus with endometrial thickening of 3 cm. Patient would like to be discharged home but I discussed with her that I am concerned with her follow-up care. I discussed with her that even if she goes home with progesterone therapy that I still feel that she needs a hysteroscopy D&C. Given her symptomatic state this morning I would feel more comfortable monitoring her and performing surgery while she is under our care. I discussed with the patient that I will discuss this with her family if that is what she desires. Patient gave me the names of her sister and her brother to talk to. She gave me permission to discuss all care with them. 2) S.p 4u PRBC- hg trending up will repeat cbc 2pm 3) OR called to see about adding on patient for Hysteroscopy, D&C, insertion of Liletta IUD tomorrow 4) Will make NPO at midnight if proceeds with surgery
--- NOTE | 2023-04-02 10:50 | CASEMGMT ---
Discharge Planning Updates sent to [facility] via fax. Patient resides in an independent living apartment. Lisha Mcconnell
--- NOTE | 2023-04-02 11:48 | PCM.PN.BLA ---
Progress Note After leaving hospital and discussion with patient I called Sherwin, patient brother, to discuss plan. He voiced concern reagrding her mental health if she had to stay another day. After discussion decision was made to allow discharge home if stable cbc at 2pm and patient is able to ambulate without feeling dizzy. pt will have follow up in our office with Dr. Jennings 04/10/23 at 8:30am. We discussed planning outpatient surgery wtih hysteroscopy D&C but at appt may attempt EMB. Provera was sent to hospital pharmacy for patient to continue to take to control bleeding. Nursing will call after CBC is resulted.
--- NOTE | 2023-04-02 11:51 | PCM.DC ---
Discharge Instructions Diet Discharge Diet: No restrictions Activity Discharge Activity: Return to Normal Activity Dressing / Incision Additional Dressing/Incision Instructions:: Please return to the ER if your bleeding is heavy- if you are passing large clots or feeling dizzy, Short of breath or faint. Follow Up Care Please Follow Up With: Nina Jennings MD When: APRIL 10 at 8:30am at [address] ([facility]) Test Results: Test results from this visit will be discussed in further detail at your follow-up appointment, if applicable. Discharge Plan Admission Admit Date/Time: 04/01/23 17:38 Attending Provider: Nina Jennings Primary Care Provider: Vandana Maxwell NP Discharge Orders/Prescriptions Prescriptions: No Action cyanocobalamin (vitamin B-12) 1,000 mcg tablet 1,000 mcg PO DAILY Label Comments: TAKE 1 TABLET BY MOUTH EVERY DAY ferrous sulfate 220 mg (44 mg iron)/5 mL elixir 220 mg PO QODAY Label Comments: TAKE 1 TEASPOONFUL BY MOUTH EVERY OTHER DAY Referrals / Follow Up: Vandana Maxwell NP, [employer] [Primary Care Provider] - Disposition Disposition (needs filled in before D/C Order can be placed): Home, Self Care
[2023-04-02 14:46] LABS: Absolute Lymphocyte Count 1.93 X10^3/uL (0.83-4.51); Absolute Neutrophil Count 7.2 X10^3/uL (2.0-7.7); Basophil# 0.05 X10^3/uL; Basophil% 0.5 % (0-1); Eosinophil# 0.19 X10^3/uL; Eosinophils% 1.9 % (0-5); Hematocrit 28.3 % (37-47); Hemoglobin 8.7 g/dL (12.0-15.0); Lymphocyte # 1.93 X10^3/ul (0.83-4.51); Mean Corp Hgb Conc 30.7 g/dL (32-36); Mean Corpuscular Volume 74.9 fL (81-99); Monocyte# 0.52 X10^3/uL; Monocyte% 5.1 % (0-10); NRBC Flagged by Analyzer 0.6 % (0-5); Neutrophil # 7.22 X10^3/uL (2.7-7.7); Neutrophil % 70.9 % (47-70); POSITIVE COUNT YES; POSITIVE MORPHOLOGY YES; Platelet Count 208 K/mm3 (150-450); RBC Distribution Width CV 24.9 % (11.6-14.6); RBC Distribution Width SD 61.1 fl (35.1-43.9); Red Blood Count 3.78 M/mm3 (4.2-5.4); White Blood Count 10.2 K/mm3 (4.4-11.0)
[2023-04-02 15:36] LABS: Differential Indicated SCAN CRITERIA MET
--- NOTE | 2023-04-02 15:40 | CHAPLAIN ---
Type of Pastoral Visit _x__ Initial Visit ___ Follow-up Visit ___ On-call Visit ___ General Patient Visit ___ Spiritual Assessment ___ Family Conference ___ Bereavement ___ Rapid Response ___ Code Blue ___ Other (describe below) Pastoral Care Referral From _x__ Patient ___ Family ___ Nurse ___ Physician ___ Clinical Services Consultant ___ Agronomy Technician ___ Other (describe below) Sacrament/Intervention _x__ Active listening ___ Anointing ___ Alevism ___ Bereavement ___ Communion _x__ Michelle exploration ___ ___ Life review _x__ Prayer ___ Reconciliation ___ Sacrament of Sick _x__ Supportive presence ___ Wedding ___ Other (describe below) Pastoral Comments patient is welcoming and reveals some of her anxious thoughts and admits that she is not able to think about a surgery right now; pt sister is with her for support; pt speaks of some connections with churches but desires to keep her admission quiet; therefore pt wanted hospital fireworks inspector to visit and to pray with her; pt also asks for a Bible; support, calm, presence, prayer given
[2023-04-02 15:54] LABS: Differential Comment SCANNED
[2023-04-02 15:55] LABS: Anisocytosis 2+; Hypochromasia 1+
[2023-04-02 15:57] LABS: Platelet Estimate ADEQUATE (ADEQ)
[2023-04-03 09:29] LABS: Pathologist Review Reviewed
== END 2023-04-02 11:56 | disposition home or self-care (01) ==
LOC: ED 14:05 → PCU 15:15
PROVIDERS: Obstetrics & Gynecology; Admitting Provider Obstetrics & Gynecology; Emergency Provider Emergency Medicine; PCP Registered Nurse; Visit Provider Obstetrics & Gynecology
DX: N92.1 Excessive and frequent menstruation with irregular cycle (principal); N93.8 Other specified abnormal uterine and vaginal bleeding; D64.9 Anemia, unspecified; N85.2 Hypertrophy of uterus; Z79.899 Other long term (current) drug therapy; I49.9 Cardiac arrhythmia, unspecified
CPT/HCPCS: 36415; 36430; 76830; 80048; 80053; 84703; 85025; 85610; 85730; 86644; 86850; 86900; 86901; 86920; 96374; 99221; 99285; J7030; P9016; A4216; G0378; J1940

== ENCOUNTER 2023-07-09 15:29 | Inpatient (IN) | payer MEDICARE, MEDICAID, SELFPAY ==
[2023-07-09] VITALS (10 sets, daily range): BP systolic 113–165; BP diastolic 45–72; PULSE 77–101; RESP 16–32; TEMP 35.7–36.6; O2SAT 95–100; BMI 61.3; BMI 61.7
--- NOTE | 2023-07-09 15:56 | EKG12_ITS ---
Test Reason : Blood Pressure : / mmHG Vent. Rate : 081 BPM Atrial Rate : 081 BPM P-R Int : 186 ms QRS Dur : 076 ms QT Int : 338 ms P-R-T Axes : 054 008 123 degrees QTc Int : 392 ms Normal sinus rhythm Low voltage QRS Nonspecific T wave abnormality Abnormal ECG Confirmed by THA HAILE ([id number]), videotape editor ANNIE EVANGELISTA ([id number]) on 07/10/2023 11:26:00 AM Referred By: Confirmed By:THA HAILE
--- NOTE | 2023-07-09 15:59 | NURSING ---
NO OLD EKGS
--- NOTE | 2023-07-09 16:11 | EDS_ITS ---
HPI History of Present Illness Chief Complaint: Abn Labs Informant: patient and family Narrative Narrative: Patient here with family reported abnormal hemoglobin in the 4 range ordered by her PCP Dr. Maxwell today. Patient has been having lightheaded symptoms and dyspnea with exertion for past few weeks. Patient has been had intermittent vaginal bleeding since the beginning of the year, this past March she was transfused blood biopsy finally performed confirming endometrial cancer. She is being followed by Dr. Nina Jennings, she was referred to Dr. Darling. Treatment options including hysterectomy has been discussed. She states no recent significant vaginal bleeding. She follow-up today due to the symptoms with blood work drawn. After was drawn she was called to go to the ED. She does not take anticoagulants denies any rectal bleeding or black tarry stools. Denies abdominal pain. She is currently on iron. Prior similar symptoms: Yes PFSH PFSH Medical History Anxiety Brain tumor Chest pain Depression Hypothyroidism Irregular heart beat Non-smoker Home Medications cyanocobalamin (vitamin B-12) 1,000 mcg tablet 1,000 mcg PO DAILY vitamin 04/01/23 [History Last Taken 07/08/23] ferrous sulfate 220 mg (44 mg iron)/5 mL oral elixir 220 mg PO DAILY supplement 04/01/23 [History Last Taken Unknown] ascorbic acid (vitamin C) 500 mg tablet,extended release (C-500) 1,000 mg PO DAILY 07/09/23 [History Last Taken Unknown] multivitamin (Daily Multi-Vitamin tablet) 1 tab PO DAILY supplement 07/09/23 [History Last Taken 07/08/23] Allergy/AdvReac Type Severity Reaction Status Date / Time Penicillins Allergy Rash Verified 07/09/23 15:31 Social History household members: none and other details: Apartment is in disarray. This apparently is not abnormal. Smoking Status: Never smoker alcohol intake: never substance use type: does not use ROS ROS ED Constitutional Constitutional ED: Denies chills, fever(s) or sweats Eyes Eyes: Denies change in vision ENT ENT ED: Denies dysphagia or sore throat Cardiovascular Cardiovascular: Denies chest pain, leg edema, palpitations or racing heartbeat Respiratory/Chest Respiratory/Chest: Reports dyspnea; Denies cough or dyspnea on exertion Gastrointestinal Gastrointestinal: Denies abdominal pain, diarrhea, nausea or vomiting Genitourinary Genitourinary ED: Reports other Details: Vaginal bleeding ; Denies dysuria, hematuria or urinary frequency Musculoskeletal Musculoskeletal: Denies back pain, extremity pain or neck pain Integumentary Denies rash or wounds Neurologic Neurologic: Denies headache(s), paresthesias or weakness EXAM Physical Exam Const Vital Signs: 07/09/23 15:31 07/09/23 16:23 07/09/23 18:14 Temperature 97.8 F Temperature Source Temporal Pulse Rate 101 H 84 Respiratory Rate 18 32 H Respiratory Effort Normal Non-Labored Respiratory Depth Respiratory Pattern Normal Blood Pressure 146/69 H 142/55 H Blood Pressure Mean 94 84 Blood Pressure Source Blood Pressure Position Blood Pressure Location Pulse Ox 100 Oxygen Delivery Method Room Air 07/09/23 18:15 07/09/23 19:24 07/09/23 20:35 Temperature 97 F L 96.2 F L 98 F Temperature Source Temporal Temporal Temporal Pulse Rate 84 85 94 Respiratory Rate 25 H 20 H 18 Respiratory Effort Respiratory Depth Respiratory Pattern Blood Pressure 136/69 H 125/45 H 113/72 Blood Pressure Mean 91 71 85 Blood Pressure Source Monitor Monitor Blood Pressure Position Left Lateral Blood Pressure Location Right Forearm Pulse Ox 95 99 100 Oxygen Delivery Method Room Air Room Air Room Air 07/09/23 20:39 07/09/23 20:50 Temperature 97.7 F L Temperature Source Temporal Pulse Rate 84 Respiratory Rate 16 Respiratory Effort Normal Respiratory Depth Normal Respiratory Pattern Normal Blood Pressure 155/59 H Blood Pressure Mean 91 Blood Pressure Source Monitor Blood Pressure Position Blood Pressure Location Pulse Ox 100 Oxygen Delivery Method Room Air Positive well nourished and well developed General Appearance ED: well developed and NAD HEENT Reports moist mucous membranes normocephalic and atraumatic Eyes PERRL and EOMs intact bilaterally General Eye ED: Yes normal appearance of both eyes and pale conjunctiva Neck no lymphadenopathy and supple General: Negative for tenderness Chest Wall Chest: Negative for tenderness Resp normal respiratory effort and normal air movement Effort and Inspection: symmetric chest movement; Negative for respiratory dis tress Cardio regular rate, regular rhythm and no murmurs Peripheral Pulses: pulses 2+ throughout GI normal to inspection, nondistended, normoactive bowel sounds and non-tender Palpation: Negative for guarding or rebound tenderness present Back/Spine no CVA tenderness and no thoracic nor lumbar tenderness Extremity normal to inspection General Extremety ED: Negative for edema or tenderness General Extremity: Negative for edema Neuro oriented x3 and no sensory deficits noted Sensorium / Orientation: awake and alert Skin no rashes or lesions noted and no wounds MDM MDM MDM Narrative Medical decision making narrative: Interventions / MDM: Differential diagnosis: Symptomatic anemia, vaginal bleeding, history of endometrial cancer Diagnosis considered but do not suspect: N/A My EKG interpretation: Sinus rate of 81, no ST changes T wave version anterior lateral leads. No old for comparison. Imaging independently reviewed and interpreted by myself: N/A External documents reviewed: Reviewed records from March, she is in ED for vaginal bleeding for 5 weeks that was heavy, she is found to have a hemoglobin of 4.2 she is admitted under gynecology she was given 4 units of blood. Test considered but not ordered:N/A ED course: Patient went pale conjunctiva vitals are stable. Lightheaded symptoms EKG ordered. Labs will be drawn for confirmation. Attempting to obtain lab work from outside facility from today. However reported hemoglobin in the 4 range. 1739: Hemoglobin confirmed return at 4.2 again. Reported today was having increased vaginal bleeding. Known endometrial cancer with intermittent bleeds for the past few months. She is followed by Dr. nina Jennings. From review records she was admitted under gynecology for her issues back in March. Will discuss with [facility] team. 1744: I spoke with Dr. Sherwood, discussed history and findings with hemoglobin. She will admit under her service. Re-evaluation: stable Disposition discussed with patient/family/significant other: Case discussed with consulting clinician: N/A This note was generated with AnyLeaf dictation software. It may contain incorrect words, spelling, and punctuation that were not noted in checking the note before signing. Lab Data Attestation: I reviewed the patient's lab results. Labs: Laboratory Results - last 24 hr 07/09/23 16:05 WBC 7.4 RBC 2.54 L Hgb 4.2 L* Hct 16.6 L MCV 65.4 L MCH 16.5 L MCHC 25.3 L RDW Std Deviation 52.9 H RDW Coeff of Priyanka 23.1 H Plt Count 263 MPV 10.7 Immature Gran % (Auto) 0.300 Neut % (Auto) 63.8 Lymph % (Auto) 28.0 [place] % (Auto) 5.3 Eos % (Auto) 2.3 Baso % (Auto) 0.3 Absolute Neuts (auto) 4.7 Absolute Lymphs (auto) 2.08 Nucleated RBC % 0 Differential Comment SCANNED Diff Path Review May foll Polychromasia RARE Hypochromasia 3+ Anisocytosis 2+ Microcytosis 1+ Macrocytosis RARE Target Cells RARE Crenated Cell RARE Schistocytes RARE PT 14.0 INR 1.1 APTT 25.1 Sodium 137 Potassium 3.8 Chloride 109 H Carbon Dioxide 23.0 Anion Gap 5 BUN 7 Creatinine 0.93 Estim Creat Clear Calc 49.67 Est GFR (MDRD) Af Amer 81 Est GFR (MDRD) Non-Af 67 BUN/Creatinine Ratio 7.5 L Glucose 117 H Calcium 9.6 Total Bilirubin 0.30 AST 13 L ALT 14 Alkaline Phosphatase 66 Total Protein 7.5 Albumin 3.1 L Globulin 4.4 H Albumin/Globulin Ratio 0.7 L Blood Type O POSITIVE Antibody Screen NEGATIVE Crossmatch See Detail Discharge Plan Dx/Rx/DC Orders Clinical Impression: Abnormal vaginal bleeding, Endometrial cancer, Symptomatic anemia Disposition Disposition: Acute Care Hospital [facility] Discharge Date/Time: 07/09/23 18:52
[2023-07-09 16:46] LABS: International Normalized Ratio 1.1
[2023-07-09 16:47] LABS: Partial Thromboplast Time 25.1 Seconds (24.1-36.2)
[2023-07-09 17:00] LABS: Absolute Lymphocyte Count 2.08 X10^3/uL (0.83-4.51); Absolute Neutrophil Count 4.7 X10^3/uL (2.0-7.7); Basophil# 0.02 X10^3/uL; Basophil% 0.3 % (0-1); Eosinophil# 0.17 X10^3/uL; Eosinophils% 2.3 % (0-5); Hematocrit 16.6 % (37-47); Lymphocyte # 2.08 X10^3/ul (0.83-4.51); Mean Corp Hgb Conc 25.3 g/dL (32-36); Mean Corpuscular Hgb 16.5 pg (27.0-32.0); Mean Corpuscular Volume 65.4 fL (81-99); Mean Platelet Vol. 10.7 fl (6.2-12.0); Monocyte# 0.39 X10^3/uL; Monocyte% 5.3 % (0-10); NRBC Flagged by Analyzer 0 % (0-5); Neutrophil # 4.74 X10^3/uL (2.7-7.7); Neutrophil % 63.8 % (47-70); POSITIVE COUNT YES; POSITIVE MORPHOLOGY YES; Platelet Count 263 K/mm3 (150-450); RBC Distribution Width CV 23.1 % (11.6-14.6); RBC Distribution Width SD 52.9 fl (35.1-43.9); Red Blood Count 2.54 M/mm3 (4.2-5.4); White Blood Count 7.4 K/mm3 (4.4-11.0)
[2023-07-09 17:05] LABS: ALB/GLOB Ratio 0.7 RATIO (0.9-2.4); AST(SGOT) 13 U/L (15-37); Alanine Aminotransfer ALT/SGPT 14 U/L (13-56); Albumin, Serum 3.1 g/dL (3.2-5.0); Alkaline Phosphatase 66 U/L (45-117); Anion Gap 5 (5-15); BUN 7 mg/dL (7-18); BUN/Creat Ratio 7.5 RATIO (10-20); Calcium,Total 9.6 mg/dL (8.5-10.1); Chloride 109 mmol/L (98-107); Creatinine, Serum 0.93 mg/dL (0.55-1.02); EST Glomerular Filtration Rate 67 mL/min (>60); Est Glom Filt Rate - Afr Amer 81 mL/min (>60); Estimated Creatinine Clearance 49.67 ml/min; Globulin 4.4 g/dL (2.2-4.2); Glucose 117 mg/dL (74-106); Potassium 3.8 mmol/L (3.5-5.1); Protein, Total 7.5 g/dL (6.4-8.2); Sodium Level 137 mmol/L (136-145)
[2023-07-09 17:15] LABS: Differential Indicated SCAN CRITERIA MET; Hemoglobin 4.2 g/dL (12.0-15.0)
[2023-07-09 17:28] LABS: Differential Comment SCANNED
[2023-07-09 17:29] LABS: Anisocytosis 2+
[2023-07-09 17:30] LABS: Hypochromasia 3+
[2023-07-09 17:31] LABS: Crenated RBC RARE; Macrocytosis RARE; Microcytosis 1+; Polychromasia RARE; Schistocytes RARE; Target Cells RARE
--- NOTE | 2023-07-09 20:47 | NURSING ---
At this time, this RN paged Dr. Mary Beth Sherwood for admission orders. Alonso ALLEN
--- NOTE | 2023-07-09 21:32 | PCM.HP.BLA ---
History and Physical Date of Admission: 07/09/23 52-year-old 0 female presents complaining of vaginal bleeding. She has been bleeding off and on for several weeks. She states it got heavier after she stopped the Megace but she started gushing within the last few days. She is unsure of the exact dates. She had some progressive shortness of breath and weakening. She saw her primary care physician today and was sent to the emergency room. She was seen here previously for the same issue. She had endometrial biopsy that revealed grade 1 endometrial cancer that was well differentiated. She saw [facility] onc[facility] and they placed her on Megace. She had significant edema with this and stopped it. Patient's brother is with her during the discussion. Allergies reviewed. Medications reviewed. Past medical history reviewed. Significant history is endometrial adenocarcinoma that is well differentiated recently diagnosed, and history of a brain tumor and surgery as a child. Physical exam: General, awake, alert, no acute distress Abdomen soft, large pannus, nontender. Assessment & Plan Assessment/Plan (1) Symptomatic anemia: (2) Endometrial cancer: PLAN: Patient admitted for symptomatic acute blood loss anemia superimposed on chronic blood loss anemia. Will check iron studies. May benefit from iron infusion. She is status post 4 units of blood a couple months ago. She consulted with [facility]. She did not tolerate Megace and stopped it. From their last consultation with her it seemed they suggested an IUD insertion. Patient is under the understanding that she could have an outpatient hysterectomy. We reviewed the significant risks of surgery with her morbid obesity. Discussed with her the option of attempting D&C with IUD insertion tomorrow while she is already admitted. Patient states she would rather have a hysterectomy. She was under the understanding that she could proceed with that and likely be discharged home the same day if it was done robotically. I discussed with her that would need to be in a tertiary care center. At this point I will make the patient n.p.o., finished her 4 units of blood transfusion, check iron studies and consider iron infusion. Discussed the case tomorrow with her [facility] oncology attending and see how they would like us to proceed. Patient would also like to have a family member on the phone are present with her during discussion of any surgery. We also had discussion about her morbid obesity and the comorbidities that is producing for her. Discussed that her weight has reached a point where it is endangering her life acutely as well as chronically with ongoing medical issues. We discussed the risks of recurrent anemia and risk of heart failure, loss of consciousness with potential bodily or head trauma and resulting stroke or brain injury. Strongly encourage patient to consider seeing bariatric surgery and the interest of her long-term health.
[2023-07-10] VITALS (23 sets, daily range): BP systolic 114–184; BP diastolic 42–83; PULSE 70–82; RESP 14–20; TEMP 36.4–37.2; O2SAT 96–100
[2023-07-10] MEDS: Zolpidem Tartrate 5 MG Tablet PO (03:45)
[2023-07-10 06:58] LABS: Absolute Lymphocyte Count 1.83 X10^3/uL (0.83-4.51); Basophil# 0.04 X10^3/uL; Basophil% 0.5 % (0-1); Eosinophil# 0.13 X10^3/uL; Eosinophils% 1.7 % (0-5); Hematocrit 26.5 % (37-47); Hemoglobin 7.6 g/dL (12.0-15.0); Lymphocyte # 1.83 X10^3/ul (0.83-4.51); Lymphocyte % 24.5 % (19-41); Mean Corp Hgb Conc 28.7 g/dL (32-36); Mean Corpuscular Hgb 21.3 pg (27.0-32.0); Mean Corpuscular Volume 74.4 fL (81-99); Mean Platelet Vol. 9.1 fl (6.2-12.0); Monocyte% 5.4 % (0-10); NRBC Flagged by Analyzer 0.4 % (0-5); Neutrophil # 5.02 X10^3/uL (2.7-7.7); Neutrophil % 67.2 % (47-70); POSITIVE COUNT YES; POSITIVE MORPHOLOGY YES; Platelet Count 145 K/mm3 (150-450); RBC Distribution Width CV 25.1 % (11.6-14.6); RBC Distribution Width SD 66.6 fl (35.1-43.9); Red Blood Count 3.56 M/mm3 (4.2-5.4); White Blood Count 7.5 K/mm3 (4.4-11.0)
[2023-07-10 07:03] LABS: Differential Indicated SCAN CRITERIA MET
[2023-07-10 07:17] LABS: Anisocytosis 2+; Differential Comment SCANNED; Hypochromasia 2+; Microcytosis 2+
[2023-07-10 07:38] LABS: Anion Gap 4 (5-15); BUN 6 mg/dL (7-18); BUN/Creat Ratio 8.5 RATIO (10-20); Calcium,Total 9.5 mg/dL (8.5-10.1); Chloride 114 mmol/L (98-107); EST Glomerular Filtration Rate 92 mL/min (>60); Est Glom Filt Rate - Afr Amer 111 mL/min (>60); Estimated Creatinine Clearance 65.99 ml/min; Glucose 96 mg/dL (74-106); Potassium 4.1 mmol/L (3.5-5.1); Sodium Level 142 mmol/L (136-145)
[2023-07-10] MEDS: Furosemide 40 MG/4 ML Vial IV ×2 (09:09→23:15)
[2023-07-10] MEDS: 0.9% Saline Lock 10 ML Syringe IV ×2 (09:09→18:08)
[2023-07-10 09:33] LABS: Ferritin 7 ng/mL (8-252); Iron Binding Capacity,Total 507 ug/dL (250-450)
--- NOTE | 2023-07-10 09:38 | CASEMGMT ---
?Met with patient to complete SABA form. SABA form explained to patient, who voiced understanding and signed form. Original form placed in pt?s chart and copy provided to patient. Lisha Mcconnell, Discharge Planning Asst.?
--- NOTE | 2023-07-10 12:24 | PN.OBGYN_ITS ---
Subjective Subjective Patient denies any pain. States she is feeling better as far as her shortness of breath and lightheadedness. She still having some moderate vaginal bleeding. Objective Data Objective Data Vital Signs: Vital Signs Temp Pulse Resp BP Pulse Ox O2 Del Method 98.9 F 81 16 184/83 H 98 Room Air 07/10/23 11:45 07/10/23 11:45 07/10/23 11:45 07/10/23 11:45 07/10/23 11:45 07/10/23 11:45 Oxygen Delivery Method Room Air Weight: 143.3 kg Body Mass Index (BMI) 61.7 Intake & Output: Intake and Output for Last 24 Hours 07/08/23 07/09/23 07/10/23 23:59 23:59 23:59 Intake Total 400 / 400 1200 / 1200 Balance 400 / 400 1200 / 1200 Lab / Micro Data 07/10/23 06:50 07/10/23 06:50 Labs: Laboratory Results - last 24 hr 07/09/23 16:05: WBC 7.4, RBC 2.54 L, Hgb 4.2 L*, Hct 16.6 L, MCV 65.4 L, MCH 16.5 L, MCHC 25.3 L, RDW Std Deviation 52.9 H, RDW Coeff of Priyanka 23.1 H, Plt Count 263, MPV 10.7, Immature Gran % (Auto) 0.300, Neut % (Auto) 63.8, Lymph % (Auto) 28.0, Claiborne % (Auto) 5.3, Eos % (Auto) 2.3, Baso % (Auto) 0.3, Absolute Neuts (auto) 4.7, Absolute Lymphs (auto) 2.08, Nucleated RBC % 0, Differential Comment SCANNED, Diff Path Review May foll, Polychromasia RARE, Hypochromasia 3+, Anisocytosis 2+, Microcytosis 1+, Macrocytosis RARE, Target Cells RARE, Crenated Cell RARE, Schistocytes RARE, PT 14.0, INR 1.1, APTT 25.1, Sodium 137, Potassium 3.8, Chloride 109 H, Carbon Dioxide 23.0, Anion Gap 5, BUN 7, Creatinine 0.93, Estim Creat Clear Calc 49.67, Est GFR (MDRD) Af Amer 81, Est GFR (MDRD) Non-Af 67, BUN/Creatinine Ratio 7.5 L, Glucose 117 H, Calcium 9.6, Total Bilirubin 0.30, AST 13 L, ALT 14, Alkaline Phosphatase 66, Total Protein 7.5, Albumin 3.1 L, Globulin 4.4 H, Albumin/Globulin Ratio 0.7 L, Blood Type O POSITIVE, Antibody Screen NEGATIVE, Crossmatch See Detail 07/10/23 06:50: WBC 7.5, RBC 3.56 L, Hgb 7.6 L, Hct 26.5 L, MCV 74.4 L D, MCH 21.3 L, MCHC 28.7 L D, RDW Std Deviation 66.6 H, RDW Coeff of Priyanka 25.1 H, Plt Count 145 L, MPV 9.1, Immature Gran % (Auto) 0.700, Neut % (Auto) 67.2, Lymph % (Auto) 24.5, Claiborne % (Auto) 5.4, Eos % (Auto) 1.7, Baso % (Auto) 0.5, Absolute Neuts (auto) 5.0, Absolute Lymphs (auto) 1.83, Nucleated RBC % 0.4, Differential Comment SCANNED, Hypochromasia 2+, Anisocytosis 2+, Microcytosis 2+, Sodium 142, Potassium 4.1, Chloride 114 H, Carbon Dioxide 24.0, Anion Gap 4 L, BUN 6 L, Creatinine 0.70, Estim Creat Clear Calc 65.99, Est GFR (MDRD) Af Amer 111, Est GFR (MDRD) Non-Af 92, BUN/Creatinine Ratio 8.5 L, Glucose 96, Calcium 9.5, TIBC 507 H, Ferritin 7 L Physical Exam Narrative Awake, alert, no acute distress Skin warm dry and intact Abdomen soft, nondistended, large pannus, no mass Assessment & Plan (1) Symptomatic anemia: PLAN: I discussed the patient this morning with her BOAT CARPENTER MECHANIC oncologist at [facility]. She agreed that the patient is a high risk surgical candidate. She states she did not plan to do a hysterectomy in the near future and the patient. She strongly advised that the patient consider a progestin IUD. I discussed with her that I could offer the patient a D&C with progestin IUD insertion today in the operating room. I then reviewed this with the patient in person and we had her sister on speaker phone. Patient and her sister still states that they were under the understanding she could have a hysterectomy. We again reviewed surgical risks. Patient is still significantly anemic. Recommended 2 more units packed red blood cells and patient is comfortable with this. Also will likely get IV iron later today. Discussed with them that I am uncertain if I can add the surgery on tomorrow. We again reviewed short and long-term risk of the patient's morbid obesity Checkout given to Dr. Jennings, Dr. Jennings is taking over the patient's care for the remainder of the day (2) Endometrial cancer:
[2023-07-10 13:09] LABS: Pathologist Review Reviewed
--- NOTE | 2023-07-10 16:19 | CHAPLAIN ---
Type of Pastoral Visit _x__ Initial Visit ___ Follow-up Visit ___ On-call Visit ___ General Patient Visit ___ Spiritual Assessment ___ Family Conference ___ Bereavement ___ Rapid Response ___ Code Blue ___ Other (describe below) Pastoral Care Referral From _x__ Patient ___ Family ___ Nurse ___ Physician ___ Battery Builder ___ Commercial Pest Control Representative ___ Other (describe below) Sacrament/Intervention _x__ Active listening ___ Anointing ___ Synagogue ___ Bereavement ___ Communion _x__ Michelle exploration ___ ___ Life review _x__ Prayer ___ Reconciliation ___ Sacrament of Sick _x__ Supportive presence ___ Wedding ___ Other (describe below) Pastoral Comments patient is receiving a blood transfusion and lying very still; pt is welcoming and wants spiritual care support; pt speaks of her diagnosis of cancer and how that is difficult; pt has several questions of spiritual nature to seek help and understanding during this time of medical intervention; pt has deep michelle in [place] and wants to keep strong in her michelle in the midst of the trials; pt asks for spiritual direction; pt also admits frustrations in not being given food so far during this admission to the hospital; this commercial loan collection officer inquired of charge nurse about request for food and there was assurance that this has been taken care of for patient; pt is expressive of thanks for the prayers and presence given to her today
[2023-07-10] MEDS: Prenatal Vits Tablet 1 TABLET PO (18:03)
[2023-07-10] MEDS: NORETHINDRONE ACETATE 5 MG TABLET PO (18:07)
[2023-07-10 21:58] LABS: Vitamin B12 1112 pg/mL (211-911)
[2023-07-11 03:00] VITALS: BP 140/76; PULSE 74; RESP 18; TEMP 37; O2SAT 96
[2023-07-11 06:01] LABS: Hematocrit 32.4 % (37-47); Hemoglobin 9.7 g/dL (12.0-15.0); Mean Corp Hgb Conc 29.9 g/dL (32-36); Mean Corpuscular Hgb 22.8 pg (27.0-32.0); Mean Corpuscular Volume 76.1 fL (81-99); Mean Platelet Vol. 9.6 fl (6.2-12.0); POSITIVE MORPHOLOGY YES; Platelet Count 318 K/mm3 (150-450); RBC Distribution Width CV 25.7 % (11.6-14.6); RBC Distribution Width SD 68.4 fl (35.1-43.9); Red Blood Count 4.26 M/mm3 (4.2-5.4); White Blood Count 8.7 K/mm3 (4.4-11.0)
[2023-07-11 06:04] LABS: Scan Indicated on CBC? Y/N YES- FLAGS NOTED
[2023-07-11 06:35] LABS: Differential Comment SCANNED
--- NOTE | 2023-07-11 08:49 | PN_ITS ---
Subjective Subjective pt seen at bedside, reports feeling good. Sore back and arms today from sleeping. Denies CP, SOB, dizziness. Pt reports no heavy bleeidng overnight. pt states when she took megace she had swelling in fingers and was not able to walk due to swelling. pt reports is tolerating new progesterone better and is willing to take it until she sees the oncologist next week. Objective Data Objective Data Vital Signs: Vital Signs Temp Pulse Resp BP Pulse Ox O2 Del Method 98.6 F 74 18 140/76 H 96 Room Air 07/11/23 03:00 07/11/23 03:00 07/11/23 03:00 07/11/23 03:00 07/11/23 03:00 07/11/23 03:20 Oxygen Delivery Method Room Air Weight: 143.3 kg Body Mass Index (BMI) 61.7 Intake & Output: Intake and Output for Last 24 Hours 07/09/23 07/10/23 07/11/23 23:59 23:59 23:59 Intake Total 400 / 400 2000 / 2000 270 / 270 Output Total 950 / 950 Balance 400 / 400 1050 / 1050 270 / 270 Lab / Micro Data Attestation: I reviewed the patient's lab results. 07/11/23 05:50 07/10/23 06:50 Labs: Laboratory Results - last 24 hr 07/09/23 16:05: Diff Path Review Reviewed 07/10/23 06:50: TIBC 507 H, Ferritin 7 L 07/10/23 08:40: Crossmatch See Detail 07/10/23 08:55: Vitamin B12 1112 H 07/11/23 05:50: WBC 8.7, RBC 4.26, Hgb 9.7 L, Hct 32.4 L, MCV 76.1 L, MCH 22.8 L , MCHC 29.9 L, RDW Std Deviation 68.4 H, RDW Coeff of Priyanka 25.7 H, Plt Count 318, MPV 9.6, Differential Comment SCANNED Physical Exam Const alert and oriented x3 General Appearance: cooperative HEENT normocephalic GI GI Narrative: Gravid, non tender to palpation. OB / External & Speculum: external exam normal Extremity normal to inspection Skin no rashes or lesions noted Neuro oriented x3 and CN's II-XII intact bilaterally Psych Appearance: grossly normal Assessment & Plan Assessment/Plan (1) Symptomatic anemia: (2) Endometrial cancer: (3) Abnormal vaginal bleeding: (4) Anxiety disorder: PLAN: Plan HD#2 - endometrial cancer, symptomatic acute blood loss anemia 1) hg stable s/p 6u PRBC 2) pt to follow up with OVERHEAD CRANE TRUCK LOADER ONC at [facility] next week as scheduled- pt aware 3) Dc home with Norethindrone acetate 5mg QID sent to [facility]- pt aware of this 4) bleeding precautions reviewed 5) advised patient if bleeding increases and she is able would try to get to [facility] for admission due to having OVERHEAD CRANE TRUCK LOADER ONC services available.
--- NOTE | 2023-07-11 08:55 | DCINST_ITS ---
Discharge Instructions Diet Discharge Diet: No restrictions Activity Discharge Activity: Return to Normal Activity Follow Up Care When: BOWLING BALL PATCHER [facility]COLOGY - [facility] NEXT WEEK DR. [facility] Test Results: Test results from this visit will be discussed in further detail at your follow- up appointment, if applicable. Discharge Plan Admission Admit Date/Time: 07/10/23 16:25 Attending Provider: Mary Beth Sherwood Primary Care Provider: Vandana Maxwell NP Discharge Orders/Prescriptions Prescriptions: New norethindrone acetate 5 mg Tablet 5 mg PO 4X/DAY 30 Days Qty: 120 0RF Continued cyanocobalamin (vitamin B-12) 1,000 mcg tablet 1,000 mcg PO DAILY Patient Comments: TAKE 1 TABLET BY MOUTH EVERY DAY ferrous sulfate 220 mg (44 mg iron)/5 mL elixir 220 mg PO DAILY Patient Comments: TAKE 1 TEASPOONFUL BY MOUTH EVERY OTHER DAY multivitamin [Daily Multi-Vitamin] Tablet 1 tab PO DAILY ascorbic acid (vitamin C) [C-500] 500 mg tablet extended release 1,000 mg PO DAILY Referrals / Follow Up: Vandana Maxwell NP, MOUNTER SAXOPHONES-C [Primary Care Provider] - Disposition Disposition (needs filled in before D/C Order can be placed): Home, Self Care
--- NOTE | 2023-07-11 08:58 | DS.PCM_ITS ---
Discharge Summary Date of Admission: 07/09/23 Date of Discharge: 07/11/23 Summary: Admitted to [facility] on 07/09/2023 with acute blood loss anemia. She had heavy vaginal bleeding has a history of endometrial cancer was being seen by COLD HEADER OPERATOR oncology with the [facility]. Patient was on Megace but stopped due to side effects. On admission patient had a hemoglobin of 4.2 she received 6 units of packed red blood cells and was discharged home with a hemoglobin of 9.7. She has a follow-up appointment with COLD HEADER OPERATOR oncology [facility] next week. She will be discharged home on norethindrone acetate 5 mg 4 times daily. She reports no heavy vaginal bleeding. She was given bleeding precautions. Discharged home in stable condition. Meaningful Use Info Meaningful Use Diagnoses (Choose all that apply): None applicable Discharge Plan Admission Admit Date/Time: 07/10/23 16:25 Attending Provider: Mary Beth Sherwood Primary Care Provider: Vandana Maxwell NP Discharge Orders/Prescriptions Prescriptions: New norethindrone acetate 5 mg Tablet 5 mg PO 4X/DAY 30 Days Qty: 120 0RF Continued cyanocobalamin (vitamin B-12) 1,000 mcg tablet 1,000 mcg PO DAILY Patient Comments: TAKE 1 TABLET BY MOUTH EVERY DAY ferrous sulfate 220 mg (44 mg iron)/5 mL elixir 220 mg PO DAILY Patient Comments: TAKE 1 TEASPOONFUL BY MOUTH EVERY OTHER DAY multivitamin [Daily Multi-Vitamin] Tablet 1 tab PO DAILY ascorbic acid (vitamin C) [C-500] 500 mg tablet extended release 1,000 mg PO DAILY Referrals / Follow Up: Vandana Maxwell NP, ENERGY PROJECT MANAGER-C [Primary Care Provider] - Disposition Disposition (needs filled in before D/C Order can be placed): Home, Self Care
[2023-07-11 09:20] VITALS: BP 154/84; PULSE 69; RESP 18; TEMP 37; O2SAT 99
--- NOTE | 2023-07-11 10:25 | CASEMGMT ---
RN?CM?HOLLOW WARE MAKER?CM?to room to meet with patient for initial transition planning/care coordination?assessment.?RN?CM?introduced self and role at [facility].? Pt voices understanding and consents to?assessment?at this time.? Pt sitting on edge of bed in no distress at this time.? Pt is A/O at this time and answers all questions appropriately.?? Care providers, pharmacy, and demographics verified/updated at this time. Pt did become tearful at times as she voiced frustration being NPO when she was admitted and w/issues w/ Purewick leaking. RN CM provided active listening and emotional support. Pt voiced appreciation. PCP: YAAKOV Maxwell Specialists: Dr Ponce and Dr Jennings--[facility]/ONC @ [facility] Preferred Pharmacy: [facility] Insurance: [employer] MCR/PAULO Prescription Benefit:?Yes Living Will/HPOA:?Pt does not currently have LW/HCPOA and declines info at this time.? She states she has considered completing POA, but wants to think about it more. Pt made aware that she can contact as an out-pt and make appt in the future if she decides she would like to talk with someone about this or would like to utilize [facility] social work for advanced directive completion.? LNOK: 4 brothers and 1 sister. No children. Parents . Living Arrangements: Lives alone in [facility] in 5th floor unit w/elevator access. Independent w/ADL's and IADL's and manages her own medications. Pt reports her family is very supportive and willing to assist if needed. Transportation:?Pt states drives self and states no transportation concerns at this time.?Brother, Sherwin, will take her home @ d/c. DME: ? Denies using any DME and denies needs.?She does have a BP cuff, but states does not use it often. HHC/SNF: No hx of either. Denies needs and no needs identified. Pt wishes to return home and states has no concerns with going home at time of discharge.? CM?to follow for any further discharge planning/needs.? Pt voices no further concerns/needs at this time.? Advised pt to ask for?CM?if any further questions/concerns/needs arise.? Voices understanding. PLAN:??Home [place] BSN?RN?CM
[2023-07-11] MEDS: Prenatal Vits Tablet 1 TABLET PO (11:49)
[2023-07-11] MEDS: NORETHINDRONE ACETATE 5 MG TABLET PO (11:49)
--- NOTE | 2023-07-11 13:01 | CASEMGMT ---
Social Work Telephone call from patient brother, Sherwin. Sherwin requesting for this bilingual social worker to complete mental health evaluation with patient as Sherwin has been concerned for patient mental health. This bilingual social worker met with patient in room. Introduced self and bilingual social worker role. Patient agreeable to speak with this bilingual social worker. Living situation: Lives alone in Independent living at [facility]. PLOF: Independent. Transportation: Patient has own car and drives self to appointments. Patient family also assist with transportation. Food: Patient reports to have food in the home and family that can assist with getting needed food in the home as patient discharge. Mental Health treatment/history: Patient reports to believe that patient has depression I have down days. Patient states to get down to the point where patient does not get out of bed much and closed the curtains. Patient states to believe that patient is able to get back up on own and make the most of the situation. Patient with new diagnosis of cancer in late March 2023 and things just keep coming at me. This bilingual social worker broached conversation of anti-depressant. Patient states to have been against any medication to assist with mental health management BUT to have been thinking that I need to start that per patient due to have more down days then usual. Patient states to believe that patient might have a prescription for an anti-depressant from patient doctor Vandana Maxwell but I am not sure. This bilingual social worker inquired if patient is agreeable to this bilingual social worker contacting Dr. Maxwell to inquire about anti-depressant medication status for patient. Telephone call to Dr. Vandana Maxwell at [facility] ([phone]), no answer. Voicemail left for nursing staff to call this bilingual social worker back. This bilingual social worker updated patient on status of contactin Dr. Maxwell. This bilingual social worker encouraged patient to reach out to Dr. Maxwell if this bilingual social worker is not able to get an answer, patient voiced understanding. Patient also open to counseling resources, this bilingual social worker provided list of counseling agencies. Proposed discharge date: 07/11/2023 PLAN: Home to [facility], independent. Will continue to follow as needed. Zehra FERRERA, TYE
--- NOTE | 2023-07-11 13:23 | CASEMGMT ---
[facility] states that patient has not been prescribed an anti-depressant but that Marlyn will put a message out to Dr. Maxwell about getting an anti-depressant started and then reach out to the patient. This social research assistant updated patient on above information. Also, to be noted. This social research assistant broached conversation of suicidal ideation, thoughts, plans and patient denies all suicidal thoughts, plans, intents or history of. No further services requested or indicated. Zehra Huerta MSW, TYE
== END 2023-07-11 16:02 | disposition home or self-care (01) | DRG 760 ==
LOC: ED 18:39 → PCU 20:14
PROVIDERS: Admitting Provider Obstetrics & Gynecology; Emergency Provider Emergency Medicine; PCP Registered Nurse; Visit Provider Obstetrics & Gynecology
DX: N93.9 Abnormal uterine and vaginal bleeding, unspecified (principal); D62 Acute posthemorrhagic anemia; Z68.44 Body mass index [BMI] 60.0-69.9, adult; C54.1 Malignant neoplasm of endometrium; E66.01 Morbid (severe) obesity due to excess calories
CPT/HCPCS: 36415; 80048; 80053; 82607; 82728; 83550; 85025; 85027; 85610; 85730; 86850; 86900; 86901; 86920; 86922; 93005; 94668; 97802; 99285; J7040; J7050; P9016; A4216; J1940; J2916

== ENCOUNTER 2023-08-18 08:36 | Outpatient (CLI) | payer MEDICARE, MEDICAID, SELFPAY ==
[2023-08-18 08:59] VITALS: BP 111/72; PULSE 82; RESP 18; TEMP 36.6; O2SAT 95; BMI 60.5
[2023-08-18 09:42] VITALS: BP 131/68; PULSE 70; RESP 16; TEMP 36.3; O2SAT 95
[2023-08-18 10:42] VITALS: BP 135/72; PULSE 77; RESP 16; TEMP 36.4; O2SAT 96
[2023-08-18] MEDS: Furosemide 20 MG/2 ML VIAL IV (11:40)
[2023-08-18 11:42] VITALS: BP 134/68; PULSE 78; RESP 16; TEMP 25.5; O2SAT 96
[2023-08-18 12:25] VITALS: BP 146/76; PULSE 73; RESP 16; TEMP 36.5
[2023-08-18 13:25] VITALS: BP 139/66; PULSE 74; RESP 16; TEMP 36.2
== END 2023-08-18 08:37 | disposition home or self-care (01) ==
PROVIDERS: PCP Registered Nurse; Referring Provider Registered Nurse; Visit Provider Registered Nurse
DX: D62 Acute posthemorrhagic anemia (principal)
CPT/HCPCS: 36415; 36430; 86850; 86900; 86901; 86920; 86922; J7040; P9016; A4216; J1940

== ENCOUNTER 2024-07-03 19:26 | Emergency (ER) | payer MEDICARE, SELFPAY ==
[2024-07-03 19:28] VITALS: BP 178/48; PULSE 70; RESP 20; TEMP 37.1; O2SAT 97
--- NOTE | 2024-07-03 19:50 | RAD_ITS ---
STUDY: X-RAY - RIGHT ANKLE REASON FOR EXAM: Female, 53 years old. injury TECHNIQUE: 3 view(s) of the ankle. COMPARISON: None. FINDINGS: Normal visualized distal tibia and fibula. Normal medial and lateral malleoli. Normal tibiotalar articulation and ankle mortise. 6 mm radiolucency the medial shoulder of the talar dome worrisome for an osteochondral lesion. MRI would be useful. Small plantar posterior calcaneal enthesophytes. The visualized subtalar, talonavicular, calcaneocuboid and tarsal articulations are normal. Diffuse soft tissue swelling. RAD/Ankle min 3 Views IMPRESSION: No acute fracture or dislocation. Diffuse soft tissue swelling. Suspect osteochondral lesion of the talar dome and correlation MRI would be useful. Electronically Signed: Alex Jeter MD at 20:12 EDT ,
--- NOTE | 2024-07-03 20:00 | EDS_ITS ---
HPI HPI - Fall History of Present Illness Chief Complaint: Fall Informant: patient Narrative Narrative: 53-year-old female presenting to the emergency room with a chief complaint of ankle pain. Patient states that she was walking to the [employer] store and fell down injuring her right ankle. She notes pain anteriorly and medially. She denies any other injuries. Patient took a Tylenol prior to arrival. She does not wish any strong pain medication as she is very sensitive. [facility] Medical History Hypothyroidism Non-smoker Anxiety Depression Irregular heart beat Chest pain Brain tumor Home Medications ?Medication ?Instructions ?Recorded ?Last Taken ?Type cyanocobalamin (vitamin B-12) 1,000 mcg PO DAILY vitamin 04/01/23 07/08/23 History 1,000 mcg tablet ferrous sulfate 220 mg (44 mg 220 mg PO DAILY supplement 04/01/23 Unknown Hist ory iron)/5 mL oral elixir ascorbic acid (vitamin C) 500 mg 1,000 mg PO DAILY 07/09/23 Unknown History tablet,extended release (C-500) multivitamin (Daily Multi-Vitamin 1 tab PO DAILY supplement 07/09/23 07/08/23 History tablet) norethindrone acetate 5 mg tablet 5 mg PO 4X/DAY 30 days #120 tabs 07/11/23 Unknown Rx levonorgestrel 21 mcg/24 hr (up to intrauterine 08/18/23 Unknown History 8 years) 52 mg intrauterine device (Mirena) acetaminophen 500 mg tablet 500 mg PO Q6H PRN fever or pain 07/03/24 Unknown Rx (Tylenol Extra Strength) #30 tabs Allergy/AdvReac Type Severity Reaction Status Date / Time Penicillins Allergy Rash Verified 08/18/23 09:03 Social History household members: none and other details: Apartment is in disarray. This apparently is not abnormal. Smoking Status: Never smoker alcohol intake: never substance use type: does not use ROS ROS ED Constitutional Constitutional ED: Denies chills or weight loss Eyes Eyes: Denies change in vision or diplopia ENT ENT ED: Denies ear pain, rhinorrhea or sore throat Cardiovascular Cardiovascular: Denies chest pain, orthopnea, palpitations or racing heartbeat Respiratory/Chest Respiratory/Chest: Denies cough, dyspnea or orthopnea Gastrointestinal Gastrointestinal: Denies abdominal pain, diarrhea, nausea or vomiting Genitourinary Genitourinary ED: Denies dysuria, hematuria or urinary frequency Musculoskeletal Musculoskeletal: Reports other Details: Right ankle pain ; Denies arthralgias, back pain, myalgias or neck pain Integumentary Denies abscess or rash Neurologic Neurologic: Denies headache(s) or weakness Psychiatric Psychiatric: Denies anxiety, depression, suicidal ideation or suicidal thoughts Endocrine Endocrinology: Denies polydipsia, polyphagia or polyuria Allergic/Immunologic Allergic/Immunologic ED: Denies mouth swelling, tongue swelling or urticaria EXAM Physical Exam Const Vital Signs: 07/03/24 19:28 07/03/24 19:30 Temperature 98.8 F Temperature Source Oral Pulse Rate 70 Respiratory Rate 20 H Respiratory Effort Normal Non-Labored Respiratory Depth Normal Respiratory Pattern Normal Blood Pressure 178/48 H Blood Pressure Mean 91 Pulse Ox 97 Oxygen Delivery Method Room Air Room Air Positive well nourished and well developed General Appearance ED: well developed HEENT Reports normocephalic, head/scalp atraumatic and moist mucous membranes Eyes PERRL and EOMs intact bilaterally Neck no lymphadenopathy, supple and no JVD Resp normal respiratory effort and clear to auscultation bilaterally Cardio regular rate, regular rhythm and no murmurs GI normal to inspection, nondistended, normoactive bowel sounds and non-tender Palpation: soft Back/Spine no CVA tenderness and normal ROM Extremity Extremity Narrative: Patient has diffuse tenderness to palpation of the right ankle. There is some mild swelling diffusely. No significant ecchymosis. No palpable bony depressions. No fifth metatarsal tenderness. No fibular head tenderness General Extremety ED: Negative for edema General Extremity: Negative for edema Neuro oriented x3 and CN's II-XII intact bilaterally Sensorium / Orientation: alert Motor Exam: strength 5/5 throughout Psych mental status grossly normal Mood & Affect: Negative for depressed or tearful Skin no rashes or lesions noted and no wounds MDM MDM MDM Narrative Medical decision making narrative: Differential diagnosis includes ligamentous strain muscular strain fracture dislocation neurovascular injury My independent interpretation of the plain films of the right ankle is no acute fracture. Please see radiologist full read. There is an osteochondral lesion near the talar dome. The x-ray results were discussed with the patient. Patient will be treated with an air splint and as needed crutches. Would recommend Tylenol and Motrin ice follow-up 10 to 14 days if not improved History & Record Review Discussion w/independent historian: Patient Radiography Diagnostic Testing: Clinical Impression(s) from Imaging Studies Ankle X-Ray 07/03/24 19:50 IMPRESSION: No acute fracture or dislocation. Diffuse soft tissue swelling. Suspect osteochondral lesion of the talar dome and correlation MRI would be useful. Electronically Signed: Alex Jeter MD at 20:12 EDT , Discharge Plan Triage Chief Complaint: Fall ED Provider: Olegario Galvan Dx/Rx/DC Orders Clinical Impression: Fall, Right ankle sprain Instructions: ED Ankle Sprain (Adult) Prescriptions: New acetaminophen [Tylenol Extra Strength] 500 mg tablet 500 mg PO Q6H PRN (Reason: fever or pain) Qty: 30 0RF No Action cyanocobalamin (vitamin B-12) 1,000 mcg tablet 1,000 mcg PO DAILY Patient Comments: TAKE 1 TABLET BY MOUTH EVERY DAY ferrous sulfate 220 mg (44 mg iron)/5 mL elixir 220 mg PO DAILY Patient Comments: TAKE 1 TEASPOONFUL BY MOUTH EVERY OTHER DAY Mirena 21 mcg/24 hours (8 yrs) 52 mg intrauterine device intrauterine multivitamin [Daily Multi-Vitamin] Tablet 1 tab PO DAILY ascorbic acid (vitamin C) [C-500] 500 mg tablet extended release 1,000 mg PO DAILY norethindrone acetate 5 mg Tablet 5 mg PO 4X/DAY 30 Days Qty: 120 0RF Primary Care Provider: Vandana Maxwell NP Referrals: Vandana Maxwell NP, SUBSEA ENGINEER-C [Primary Care Provider] - 10-14 Days if not better Activity Restrictions/Additional Instructions: Please use the air splint when you are up moving around. You may take it down and elevate the leg when resting. I would recommend ice and 20 to 30-minute sessions 3-4 times a day for the next 72 hours. Please use Tylenol and Motrin for pain. Print Language: Swedish Disposition Disposition: Home, Self Care
[2024-07-03 21:15] VITALS: BP 161/81; PULSE 64; RESP 20; TEMP 36.7; O2SAT 97
== END 2024-07-03 21:38 | disposition home or self-care (01) ==
LOC: ED 20:11
PROVIDERS: Emergency Provider Emergency Medicine; PCP Registered Nurse; Visit Provider Emergency Medicine
DX: S93.401A Sprain of unspecified ligament of right ankle, initial encounter (principal); W19.XXXA Unspecified fall, initial encounter
CPT/HCPCS: 73610; 99284